=== PATIENT | female | born 1985 | race Caucasian/White ===

== ENCOUNTER 2024-12-31 10:57 | Emergency (ER) | payer BC, SELFPAY ==
--- NOTE | ~2024-12-31 | US_ITS ---
EXAMINATION: US venous doppler [facility] DATE: 12/31/2024 12:50 INDICATION: Left thigh pain. TECHNIQUE: Grayscale ultrasound images without and with compression and Doppler ultrasound images of the left lower extremity veins were obtained. COMPARISON: None. FINDINGS: The visualized portions of left common femoral vein, profunda (deep) femoral vein, femoral vein, popl iteal vein, peroneal veins, posterior tibial veins, and greater saphenous vein outflow are patent. Th ere are thrombosed varicose veins in the left thigh. IMPRESSION: 1. No deep venous thrombosis. 2. Thrombosed superficial veins in the left thigh. Reviewed, dictated and finalized at location A.
[2024-12-31 11:05] VITALS: BP 130/67; PULSE 91; RESP 16; TEMP 36.9; O2SAT 100
--- OUTSIDE RECORDS SUMMARY | 2024-12-31 11:21 | XMS_ITS | Clinical Summary ---
Author Organization [facility] Address [address] [address] Care Team Providers Care Lacquerer Name Role Phone Unavailable Primary Care Provider Unavailabl e Source Comments [facility],non-owned Affiliates and Associated Physician Practices is amultiple site organization consisting of ambulatory clinics and hospital sitesin [place], [place], [place] and [place]. This disclosure is being madepursuant to the Care Everywhere program and may not contain all information available regarding this patient. Last updated 18.[facility] Allergies Active Allergy Reactions Criticality Noted Date Comments Codeine Nausea and/or Vomiting,Vomiting 04/04 codeine Ketorolac Urticaria Medium 11/10/2024 Tramadol Urticaria Medium 11/10/2024 Vancomycin Urticaria Medium 11/10/2024 Medications * Be aware that medications may not be up to date on this document. Alwaysverify current medications with the patient. Medication Sig Dispensed Refills Start Date End Date Status valACYclovir (Valtrex) 1 GM tablet Take 1 (one) tablet by mouth 2 times daily as needed Active Idmuvknh-SaVsa-MX-DHA w/o A ( + DHA PO) Take 1 tablet by mouth once daily Active albuterol HFA (Proventil; Ventolin; Proair) 108 (90 Base) MCG/ACT inhaler INHALE 1 TO 2 PUFFS BY MOUTH EVERY 4 TO 6 HOURS NEEDED AND DIRECTED Active Active Problems Problem Noted Date Diagnosed Date Hyperthyroidism affecting 12/08/2024 Placenta accreta 12/08/2024 Previous delivery affecting , antepartum 12/08/2024 Advanced maternal age in multigravida 12/08/2024 Graves disease 11/10/2024 Supervision of high-risk of elderly mu ltigravida 11/10/2024 Placenta previa 10/30/2024 Estimated Date of Delivery Comme nts Yes 04/20/2025 Based on last me nstrual period of 07/14/2024 Encounters Date Type Department Care Team Description 12/09/2024 Telephone [facility] [address] [place] [address] Emperatriz Belle Appointment 12/09/2024 Telephone [facility] [address] [place] [address] Kris You Scheduling 12/08/2024 10:30 AM APPLICATION SECURITY DEVELOPER - 12/08/2024 11:59 PM APPLICATION SECURITY DEVELOPER Hospital Encounter [facility] [address] [place] [address] Doreen Castillo MD Chavan, Niraj R, MD Discharge Disposition: Home or Self Care 12/08/2024 10:30 AM APPLICATION SECURITY DEVELOPER Hospital Encounter [facility] [address] [place] [address] Doreen Castillo MD Discharge Disposition: Home or Self Care 12/08/2024 Travel 11/10/2024 9:38 AM APPLICATION SECURITY DEVELOPER - 11/10/2024 11:59 PM APPLICATION SECURITY DEVELOPER Hospital Encounter [facility] [address] [place] [address] Iain Tinoco DO Discharge Disposition: Home or Self Care 11/10/2024 9:36 AM APPLICATION SECURITY DEVELOPER - 11/10/2024 9:37 AM APPLICATION SECURITY DEVELOPER Hospital Encounter [facility] [address] [place] [address] Doreen Castillo MD Discharge Disposition: Home or Self Care from Last 3 Months Family History Medical History Relation Name Comments None Known Brother Asthma Father Thyroid Disease Father Thyroid Disease Mother Relation Name Status Comments Brother Father Mother Social History Tobacco Use Types Packs/Day Years Used Date Smoking Tobacco: Never Smokeless Tobacco: Never Tobacco Cessation:Counseling Given: Not Answered Alcohol Use Standard Drinks/Week Comments Not Currently 0 (1 standard drink = 0.6 oz pur e alcohol) AUDIT-C Answer Date Recorded Q1: How often do you have a drink containing alcohol? Never 11/03/2024 Q2: How many drinks containi ng alcohol do you have on a typical day when you are drinking? Patient does not drink Q3: How often do you have si x or more drinks on one occasion? Never 11/03/2024 Overall Financial Resource Strain (CARDIA) Answe r Date Recorded How hard is it for you to pa y for the very basics like food, housing, medical care, and heating? Not very hard 11/10/2024 [facility] - Occupational Stress Questionnaire Answer Date Recorded Do you feel stress - tense, restless, nervous, or anxious, or unable to sleep at night because your mind is troubled all the time - these days? Only a little 11/10/2024 Hunger Vital Sign Answer Date Recorded Within the past 12 months, y ou worried that your food would run out before you got the money to buy more. Never true 11/10/19 25 Within the past 12 months, t he food you bought just didn't last and you didn't have money to get more. Never true 11/10/2024 PRAPARE - Transportation Answer Date Re corded In the past 12 months, has l ack of transportation kept you from medical appointments or from getting medications? No 03/2025 In the past 12 months, has l ack of transportation kept you from meetings, work, or from getting things needed for daily living? No 11/10/2024 [place] Depression Scale Answer Date Recorded [place] Depression Scale Total 1 11/10/2024 The thought of harming myself has occurred to me . Never 11/10/2024 Housing Stability Vital Sign Answer Bentley e Recorded In the last 12 months, was t here a time when you were not able to pay the mortgage or rent on time? No 11/10/2024 In the past 12 months, how m any times have you moved where you were living? 0 11/10/2024 At any time in the past [address] [facility], were you homeless or living in a chcf (including now)? No 11/10/2024 Estimated Date of Delivery Comme nts Yes 04/20/2025 Based on last me nstrual period of 07/14/2024 Sex and Gender Information Value Date Recorded Sex Assigned at Female 10/20/2024 3:11 PM APPLICATION SECURITY DEVELOPER Gender Identity Female 10/20/2024 3:11 PM APPLICATION SECURITY DEVELOPER Sexual Orientation Straight 10/20/2024 3: 12 PM APPLICATION SECURITY DEVELOPER Last Filed Vital Signs Vital Sign Reading Time Taken Comments Blood Pressure 113/70 12/08/2024 11:52 AM APPLICATION SECURITY DEVELOPER Pulse 76 12/08/2024 11:52 AM APPLICATION SECURITY DEVELOPER Temperature - - Respiratory Rate - - Oxygen Saturation - - Inhaled Oxygen Concentration - - Weight 79.4 kg (175 lb) 12/08/2024 11:52 AM APPLICATION SECURITY DEVELOPER Height - - Body Mass Index - - Plan of Treatment Upcoming Encounters Date Type Department Care Team (Late st Contact Info) Description 01/03/2025 1:10 PM CDT Appointment [facility] [address] [place] [address] Doreen Castillo MD [address] [place] [address] 01/03/2025 2:15 PM CDT Appointment [facility] [address] [place] [address] Doreen Castillo MD [address] [place] [id number] Diony Underwood MD [address] [place], [place] [id number] Health Maintenance Due Date Last Done Comments PAP SMEAR 1987 HIV SCREENING 2002 HEPATITIS C SCREENING 07/11/2005 DTAP/TDAP/TD VACCINES (1 - Tdap) 2006 HEPATITIS B VACCINE (1 of 3 - 19+ 3-dose series) 2006 COVID-19 VACCINE (2023-2 5 season) 2024 INFLUENZA VACCINE (#1) 2024 OB-ONE HOUR GLUCOSE 01/12/2025 OB-RHOGAM INJECTION 01/26/2025 ZOSTER VACCINE (1 of 2) 2037 DEPRESSION SCREENING Completed 11/10/2024 HIB VACCINE Aged Out No longer eligi ble based on patient's age to complete this topic HPV VACCINE Aged Out No longer eligi ble based on patient's age to complete this topic MENINGOCOCCAL (Group B) VACC INE SHARED DECISION-MAKING Aged Out No longer eligibl e based on patient's age to complete this topic MENINGOCOCCAL GROUPS A/C/Y/W VACCINE Aged Out No longer eligible b ased on patient's age to complete this topic PNEUMOCOCCAL VACCINE Aged Out No long er eligible based on patient's age to complete this topic Respiratory Syncytial Virus (RSV) Vaccine Pt: or over 60 yrs (No Doses Required) Completed Procedures Procedure Name Priority Date/Time Associated Diagnosis Comments URINALYSIS - POCT (IP) BEAKER INTERFACE Routine 12/08/2024 11:55 AM APPLICATION SECURITY DEVELOPER SONOGRAM - COMPLETE Routine 12/08/2024 1 0:49 AM APPLICATION SECURITY DEVELOPER T4 FREE DIRECT REFLEXED Routine 11/10/19 25 12:50 PM APPLICATION SECURITY DEVELOPER Graves disease TSH REFLEX FREE T4 Routine 11/10/2024 12 :50 PM APPLICATION SECURITY DEVELOPER Graves disease HEMOGLOBINOPATHY FRACTIONATION CASCADE Routine 11/10/2024 12:50 PM APPLICATION SECURITY DEVELOPER Supervision of high-risk of elderly multigravida SONOGRAM - COMPLETE Routine 11/10/2024 1 0:14 AM APPLICATION SECURITY DEVELOPER from Last 3 Months Results * URINALYSIS - POCT (IP) BEAKER INTERFACE (12/08/2024 11:55 AM APPLICATION SECURITY DEVELOPER) Color UA POCT Yellow Straw, Yellow, Dark Yellow, Light Yellow 12/08/2024 11:57 AM APPLICATION SECURITY DEVELOPER [facility] Clarity UA POCT Clear Clear 11:57 AM APPLICATION SECURITY DEVELOPER [facility] Specific [place] UA POCT 1.015 1.005 - 1.030 12/08/2024 11:57 AM APPLICATION SECURITY DEVELOPER [facility] pH UA POCT 6.0 5.0 - 8.0 pH 12/08/2024 11:57 AM APPLICATION SECURITY DEVELOPER [facility] Protein UA POCT Negative Negative 11:57 AM APPLICATION SECURITY DEVELOPER [facility] Blood UA POCT Negative Negative 12/08/2024 11:57 AM APPLICATION SECURITY DEVELOPER [facility] Leukocyte UA POCT Negative Negative 12/08/2024 11:57 AM APPLICATION SECURITY DEVELOPER [facility] Nitrite UA POCT Negative Negative 11:57 AM APPLICATION SECURITY DEVELOPER [facility] Glucose UA POCT Negative Negative 11:57 AM APPLICATION SECURITY DEVELOPER [facility] Ketone UA POCT Negative Negative 12/08/2024 11:57 AM APPLICATION SECURITY DEVELOPER [facility] Bilirubin UA POCT Negative Negative 12/08/2024 11:57 AM APPLICATION SECURITY DEVELOPER [facility] Urobilinogen UA POCT 0.2 0.1 - 1.0 EU/dL 12/08/2024 11:57 AM [facility] Urine URINE / Unknown 12/08/2024 1 1:55 AM APPLICATION SECURITY DEVELOPER 12/08/2024 11:57 AM APPLICATION SECURITY DEVELOPER Arjun Mohamud MD LAB - POINT OF CARE ORDERABLES Performing Organization Address [facility]/State/[facility] Co de Phone Number [facility] [address] [place] [address] * SONOGRAM - COMPLETE (12/08/2024 10:49 AM APPLICATION SECURITY DEVELOPER) Only the most recent of2 resultswithin the time period is included. 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 Para 3 [id number] 1. live 2006. Gest. age 41 w + 0 d. Sex of child: male. Details: Vaginal delivery 2. live 2013. Gest. age 38 w + 0 d. Sex of child: female. Details: delivery 3. live 2022. Gest. age 39 w + 0 d. Sex of child: female. Details: delivery Lab Tests Test Date Result Genetic screening 09/29/2024 low risk male ([id number] plus) Maternal Assessment Physical Exam Height 165 cm, 5 ft 5 in. Initial weight 78 kg, 171 lb. Initial BMI 28.46 kg/m Method ====== Transabdominal and transvaginal ultrasound examination. View: Good view ========= Seaman . Number of fetuses: 1 Dating ====== Date Details Gest. age QUEENIE LMP 07/14/2024 21 w + 0 d 04/20/2025 Stated QUEENIE 21 w + 0 d 04/20/2025 Previous U/S 09/20/2024 GA, GA 10 w + 3 d 21 w + 5 d 04/15/2025 U/S 12/08/2024 based upon AC, BPD, Femur, HC 21 w + 6 d 04/14/2025 Assigned dating based on the LMP, selected on 12/08/2024 21 w + 0 d 04/20/2025 General Evaluation Cardiac activity present. FHR 138 bpm. Presentation: cephalic Placenta: Placental site: anterior, previa. Placenta accreta Umbilical cord: Cord vessels: 3 vessel cord. Insertion site: normal insertion Amniotic fluid: Amount of AF: normal. MVP 7.1 cm Biometry BPD 51.2 mm 21w 4d 70% Hadlock HC 194.2 mm 21w 5d 69% Hadlock Cerebellum tr 23.7 mm 97% [place] Nuchal fold 4.8 mm AC 188.3 mm 23w 4d 98% Hadlock Femur 33.3 mm 20w 3d 22% Hadlock Humerus 32.9 mm 21w 1d 48% Chika HC / AC 1.03 -/- 1% Hadlock Weight Calculation: EFW 477 g 93% Hadlock EFW (lb,oz) 1 lb 1 oz EFW by Hadlock (RSA-MC-LS-FL) Head / Face / Neck Biometry: International Trade Teacher 6.8 mm CM 5.9 mm 72% Nicolaides LGA Growth Overview Exam date GA BPD (mm) HC (mm) AC (mm) FL (mm) HL (mm) EFW (g) 11/10/2024 17w 0d 39.3 87% 145.5 78% 129.6 91% 21.7 26% 22.6 58% 201 80% 12/08/2024 21w 0d 51.2 70% 194.2 69% 188.3 98% 33.3 22% 32.9 48% 477 93% Anatomy The following structures appear normal: Head / Neck Cranium. Lateral ventricles. Choroid plexus. Midline falx. Cavum septi pellucidi. Cerebellum. Cisterna magna. Thalami. Nuchal fold. Face Lips. Profile. Nose. Nasal bone. Orbits. Heart / Thorax 4-chamber view. RVOT view. LVOT view. 3-vessel view. 5-kousuo-evcbojz view. Situs. Aortic arch view. Bicaval view. Ductal arch view. Great vessels. Right lung. Left lung. Diaphragm. Abdomen Cord insertion. Stomach. Kidneys. Bladder. Bowel. Spine Cervical spine. Thoracic spine. Lumbar spine. Sacral spine. Extremities / Skeleton Arms. Hands. Legs. Feet. The following structures were visualized: Abdomen Genitals. sex: male. Maternal Structures Cervix reassuring Approach - Transvaginal: Cervical length 4.54 cm Right Ovary Normal Left Ovary Normal Impression ========= Single live intrauterine at 21w 0d size at the upper limits of expected for gestational age by established QUEENIE Normal amniotic fluid volume Transvaginal cervical length reassuring No sonographic signs of abnormality Left lateral synechia Complete placenta previa with features concerning for placenta accreta Comment ======== Measurements today reflect appropriate interval growth. A uterine synechia is noted on the left lateral superior portion of the uterus. The previously seen PHOTOGRAPHY TEACHER is not visualized today. The uterine placental interface was examined transabdominally and transvaginally. A complete anterior placenta previa is noted with placenta extending on to the posterior uterine wall. With a partially full bladder, the myometrium, uterine-bladder interface, and placenta were scanned with virgen-scale and color Doppler. Loss of integrity of the retroplacental clear space/myometrial thickness is noted in the area under the bladder. On the right, multiple irregularly-shaped lacunae are noted. Turbulent blood flow within the lacunae, increased vascularity, and a bridging vessel into the bladder wall are seen with color Doppler interrogation. Follow-up ======== Repeat ultrasound in 4-6 weeks to assess growth and reassess the placenta Coding ====== Procedures 80029: US Preg Uterus Detailed [id number]: US Preg Uterus Transvaginal rishidhan Seeds PACS Anatomical Region Laterality Modality Other 12/08/2024 10:4 9 AM APPLICATION SECURITY DEVELOPER Diony Underwood MD [facility] ORDERABLES * HEMOGLOBINOPATHY FRACTIONATION CASCADE (11/10/2024 12:50 PM APPLICATION SECURITY DEVELOPER) Hemoglobin F 0.0 0.0 - 2.0 % 11/14/2024 4:08 PM APPLICATION SECURITY DEVELOPER [facility] Hemoglobin A 97.5 96.4 - 98.8 % 11/14/2024 4:08 PM APPLICATION SECURITY DEVELOPER [facility] Hemoglobin A2 2.5 1.8 - 3.2 % 11/14/2024 4:08 PM APPLICATION SECURITY DEVELOPER [facility] Hemoglobin S 0.0 0.0 % 11/14/2024 4:08 PM APPLICATION SECURITY DEVELOPER [facility] Interpretation Comment 11/14/2024 4:08 PM APPLICATION SECURITY DEVELOPER [facility] Comment: Normal hemoglobin present; no hemoglobin variant or beta thalassemia identified. Note: Alpha thalassemia may not be detected by the Hgb Fractionation [place] panel. If alpha thalassemia is suspected, [facility] offers Alpha-Thalassemia DNA Analysis (#[id number]). Blood BLOOD SPECIMEN / Unknown Venipuncture / Unknown 11/10/2024 12:50 PM APPLICATION SECURITY DEVELOPER 11/10/2024 12:58 PM APPLICATION SECURITY DEVELOPER Narrative [facility] ([facility]) - 11/14/2024 4:08 PM APPLICATION SECURITY DEVELOPER Performed at: 01 - [facility] [address] [place], [place] [id number] Associate Professor Of Archaeology: Aníbal Harley PhD, Phone: [phone] Iain Tinoco DO LAB - CHEMISTRY JANNETH GALEANA [facility] ([facility]) [address] [place] [address] * T4 FREE DIRECT REFLEXED (11/10/2024 12:50 PM APPLICATION SECURITY DEVELOPER) T4 Free 1.50 0.70 - 1.50 ng/dL 11/10/2024 3:50 PM APPLICATION SECURITY DEVELOPER [facility] Blood BLOOD SPECIMEN / Unknown Venipuncture / Unknown 11/10/2024 12:50 PM APPLICATION SECURITY DEVELOPER 11/10/2024 12:58 PM APPLICATION SECURITY DEVELOPER Iain Tinoco DO LAB - CHEMISTRY JANNETH GALEANA Performing Organization Address City/[facility]/ZIP Co de Phone Number [facility] [address] [place] [phone] * (ABNORMAL) TSH REFLEX FREE T4 (11/10/2024 12:50 PM APPLICATION SECURITY DEVELOPER) TSH <0.010(L) 0.350 - 4.940 uIU/mL 11/10/2024 2:11 PM APPLICATION SECURITY DEVELOPER [facility] Blood BLOOD SPECIMEN / Unknown Venipuncture / Unknown 11/10/2024 12:50 PM APPLICATION SECURITY DEVELOPER 11/10/2024 12:58 PM APPLICATION SECURITY DEVELOPER Iain Tinoco DO LAB - CHEMISTRY JANNETH GALEANA [facility] [address] [place] [address] from Last 3 Months Naomie Whitney Personal/Family Self 1985
--- OUTSIDE RECORDS SUMMARY | 2024-12-31 11:22 | XMS_ITS | Data Portability ---
Author Organization [facility], [address] [facility] ([place]) Address [address] 4[address] [place] [address] Care Team Providers Care Drapery Rod Assembler Name Role Phone LUPE DAN Veterinary Surgery Technician GRACIELA ABREU Primary Care Provider [phone] Assessment Encounter Date Assessment Date Assessment LastModified by Organization Details LastModified Time 11/16/2024 11/16/2024 REASONS FOR FOLLOW-UP: 1. Autoimmune thyroiditis with history of thyrotoxicosis. 2. Left thyroid nodule. 3. Cassi thyroiditis. 4. at 18 weeks' gestation as of November 17, 2024. HPI: Ms. Whitney is a delightful female returning to endocrine clinic. She learned of thyrotoxicosis due to Graves' disease in late 2018. She was begun on methimazole in September 2019. Methimazole was increased to 7.5 mg daily from a dose of 5 mg daily in early November 2020. She noted difficulty tolerating 7.5 mg daily as this resulted in dizziness and tremulousness. She took that dosage for approximately three weeks. Ms. Whitney was able to taper and then discontinue methimazole in April 2022. She feels that her thyrotoxicosis has resolved. Denies tremors or palpitations. She feels well physically. She has been exercising regularly. Ms. Whitney has a left thyroid nodule. Dr. Case previously was ordering her thyroid ultrasounds to follow the status of this nodule. April 09, 2020, diffuse thyroiditis was noted on ultrasound. There was a stable, benign appearing, 9 mm nodule in the left thyroid lobe as compared to January 2019 per the dictated radiology report. The patient denies pressure symptoms of the anterior neck. She denies change in voice. Repeat thyroid ultrasound was performed May 22, 2021. This revealed heterogeneity and increased vascularity, revealing interval improvement as compared to ultrasound April 2020. No new or enlarging thyroid nodules or masses were noted. No cervical lymphadenopathy. The small cyst in the superior aspect of the left lobe was 8 mm in size as compared to 9 mm previously. She had thyroid ultrasound repeated December 11, 2022. This revealed diffuse thyroiditis. There was a stable 8 mm left thyroid nodule. No cervical lymphadenopathy per the dictated report. No pressure symptoms over the anterior neck. She delivered her daughter September 18, 2023 without any complications. At that time, she had been taking levothyroxine 50 mcg each day on an empty stomach. November 2023 TSH was suppressed with a free T4 od 1.87. At that time, she discontinued levothyroxine. February 17, 2024, TSH increased to 11.322 with a free T4 of 0.75. Ms. Whitney continues to have labile thyroid function studies. In February 2024, she had TSH of 11.322. At that time, she was begun on levothyroxine 50 micrograms daily. August 25, 2024, TSH was 0.469. At that time, she was contacted and informed our office she had not been taking levothyroxine 50 micrograms daily. She notified us of a positive test. She was asked to begin levothyroxine 25 micrograms daily. On September 26, 2024, we were contacted by the patient's OB provider and notified that her TSH was low with slightly elevated free T4 and free T3 levels. At that time, Ms. Whitney discontinued levothyroxine. Ms. Whitney was almost 18 weeks' as of November 16, 2024. She noted going well. She reported her baby to be measuring approximately 10 days ahead of gestational dated on ultrasound in early November 2024. The patient estimated her body weight was 4 pounds more as compared to prior to . PHYSICAL EXAMINATION: CONST: No acute distress. Appears well. Vitals as documented. Appears younger than stated age. EYES: PERRL. EOMI. No scleral icterus or injection. No exophthalmos or lid lag. Convergence normal. ENT: External inspection of the ears and nose are without scars, lesions, or masses. Oropharynx without lesions. NECK: No thyromegaly, thyroid bruits, or carotid bruits. No cervical or supraclavicular lymphadenopathy. Thyroid tissue palpable. RESP: Lung kim clear to auscultation bilaterally with unlabored respiratory effort. CV: Normal S1, S2. No murmurs, rubs, or gallops appreciated. Regular rate and rhythm. GI: Abdomen: soft, nontender. Normoactive bowel sounds. Unable to assess for organomegaly given gravid body habitus. MSK: No lower extremity edema. No clubbing or cyanosis. Normocephalic. SKIN: No rashes or lesions. PSYCH: Alert and oriented X 3. Appropriate mood and affect. NEURO: No focal neurologic deficits. Gait without abnormalities. No hand tremors. Reviewed recent diagnostic tests, lab work, and imaging. These were reviewed with the patient. ASSESSMENT: 1. Thyrotoxicosis due to Graves' disease: The patient was begun on methimazole in September 2019. Methimazole was discontinued in April 2022. 2. Left thyroid nodule. 3. Vitamin D deficiency: This is managed through the office of Dr. Jimenez. 4. Normal BMI prior to . 5. Autoimmune thyroiditis/Hashim lorna thyroiditis in the setting of : She was begun on levothyroxine 50 mcg daily February 05, 2023. The patient discontinued levothyroxine in November 2023 when she had a suppressed TSH and elevated free T4. 6. Delivery of her daughter September 18, 2023. 7. Ongoing autoimmune thyroiditis. 8. at approximately 18 weeks' gestation as of November 16, 2024. RECOMMENDATIONS: 1. Potential benefits, risks, and adverse effects of the patient s endocrine medications were reviewed at the time of the appointment. We also reviewed appropriate timing of the patient s endocrine medications with respect to meals and other medications. The patient verbalized/indicat ed understanding of all education presented. 2. Instructed on plan of care. Discussed signs and symptoms to report. Patient/caregiver aware and agreeable with plan. Return to clinic if signs/symptoms do not improve, worsen, or if new symptoms develop. The importance of achieving/maintain ing a normal BMI was discussed. 3. Diagnostic studies as outlined in this note. Further recommendations will be based on these results as well as the patient s clinical course. 4. Return to endocrinology clinic in 3 months. 5. I discussed with Ms. Devonte that her biochemical thyroid profile has not been entirely clear. She has a history of autoimmune thyroiditis in the form of Graves thyrotoxicosis. However, her labs subsequently suggested she may be heading in the direction of primary hypothyroidism. 6. She will have thyroid function studies performed. We discussed potential benefits as well as potential adverse effects of both thyroid replacement therapy as well as thionamide therapy. 7. We again reviewed symptoms of thyroid dysfunction in detail. I asked her to report any such symptoms to our office. 8. We will discuss timing for any necessary repeat thyroid ultrasound when she returns to endocrine clinic. dpk Addendum: TSH continues to be suppressed with slightly elevated free T4 and free T3 values. I asked the patient to notify our office if she experiences any symptoms of thyrotoxicosis. We do not want to suppress her thyroid function in the setting of her . She will have TSH, free T4, free T3 performed in 1 month. [email or web address] Not available 11/17/2024 21:02:20 Plan of Treatment Reminders Order Date Submit Date Provider Last Modified By Organization Details Last Modified Time Details Appointments OB Check 15.EST 2024 11:45A M Dr. Lupe Dan Not available Not available Not available Establish ed Patient 15.EST 2024 01:30P M Dr. Anthony Fishman Not available Not available Not available Lab urinalysi s, dipstick 2024 025 [id number] 900 [facility] [address] [place] [address], [facility] Floor, [place], [address], 11/20/2024 18:07:07 CMP, serum or plasma 2024 025 [facility], [address] [place] [address], [id number], 12/23/2024 07:53:44 T4, free, serum 2024 025 [facility], [address] [place] [address], [id number], 12/23/2024 07:53:54 T3, free, serum or plasma 2024 025 [facility] - [facility], [address] [place] [address], [id number], 12/23/2024 07:54:05 tsi (thyroid- stimulati ng immunoglo bulin), serum 2024 025 [facility] Only - [facility], [address] [place] [address], [id number], 12/23/2024 07:54:15 thyrotrop in receptor Ab, serum 2024 025 [facility] Only - [facility], [address] [place] [address], [id number], 12/23/2024 07:54:27 thyroid peroxidas e (tpo) Ab, serum 2024 025 [facility] Only - [facility], [address] [place] [address], [id number], 12/23/2024 07:54:37 TSH, serum or plasma 2024 025 [facility] - [facility], [address] [place] [address], [id number], 12/23/2024 07:54:47 Referral None recorded. Procedures None recorded. Surgeries None recorded. Imaging None recorded. Medication Orders None recorded. Patient TargetsNo targets recorded. Patient InstructionsNo instructions recorded. Reason for Referral None Reported. Results Created Date Observation Date Name Description Value Unit Range Abnormal Flag Note LastModifiedBy Organization Detail LastModifiedTime 09/21/20 24 09/21/2024 urina lysis , compl ete urinalysis, complete LOW LEVEL S OF HEMOG LOBIN IN ABSEN CE OF HEMAT URIA MAY NOT BE [facility] SIGNI FRANCISCO TChago Not Available [facility] - [facility] [address] [place] [address], [id number], 09/21/2024 11:11:04 09/21/20 24 09/21/2024 urina lysis , compl ete color YELLOW Not Available [facility] - [facility] [address] [place] [address], [id number], 09/21/2024 11:11:04 09/21/20 24 09/21/2024 urina lysis , compl ete clarity CLEAR Not Available [facility] - [facility] [address] [place] [address], [id number], 09/21/2024 11:11:04 09/21/20 24 09/21/2024 urina lysis , compl ete pH 6.0 5.0-7. 5 Not Available [facility] [address] [place] [address], [id number], 09/21/2024 11:11:04 09/21/20 24 09/21/2024 urina lysis , compl ete specific gravity 1.009 1.000- 1.030 Not Available [facility] [address] [place] [address], [id number], 09/21/2024 11:11:04 09/21/20 24 09/21/2024 urina lysis , compl ete blood NEGATI VE negati ve Not Available [facility] [address] [place] [address], [id number], 09/21/2024 11:11:04 09/21/20 24 09/21/2024 urina lysis , compl ete bilirubin NEGATI VE negati ve Not Available [facility] [address] [place] [address], [id number], 09/21/2024 11:11:04 09/21/20 24 09/21/2024 urina lysis , compl ete urobilinogen 0.2 0.2-1. 0 Not Available [facility] [address] [place] [address], [id number], 09/21/2024 11:11:04 09/21/20 24 09/21/2024 urina lysis , compl ete ketone NEGATI VE negati ve Not Available [facility] [address] [place] [address], [id number], 09/21/2024 11:11:04 09/21/20 24 09/21/2024 urina lysis , compl ete glucose NEGATI VE negati ve Not Available [facility] [address] [place] [address], [id number], 09/21/2024 11:11:04 09/21/20 24 09/21/2024 urina lysis , compl ete protein NEGATI VE negati ve Not Available [facility] [address] [place] [address], [id number], 09/21/2024 11:11:04 09/21/20 24 09/21/2024 urina lysis , compl ete nitrite NEGATI VE negati ve Not Available [facility] [address] [place] [address], [id number], 09/21/2024 11:11:04 09/21/20 24 09/21/2024 urina lysis , compl ete leukocytes TRACE negati ve abnormal Not Available [facility] [address] [place] [address], [id number], 09/21/2024 11:11:04 09/21/20 24 09/21/2024 urina lysis , compl ete RBC 0-2 0-2/hp f Not Available [facility] [address] [place] [address], [id number], 09/21/2024 11:11:04 09/21/20 24 09/21/2024 urina lysis , compl ete WBC 0-5 0-5/hp f Not Available [facility] [address] [place] [address], [id number], 09/21/2024 11:11:04 09/21/20 24 09/21/2024 urina lysis , compl ete squamous epithelial 0-2 0-10/h pf Not Available [facility] [address] [place] [address], [id number], 09/21/2024 11:11:04 09/21/20 24 09/21/2024 urina lysis , compl ete bacteria NONE SEEN none Not Available [facility] [address] [place] [address], [id number], 09/21/2024 11:11:04 09/21/20 24 09/21/2024 urina lysis , compl ete hyaline cast 0-2 0-2/lp f Not Available [facility] [address] [place] [address], [id number], 09/21/2024 11:11:04 09/21/20 24 09/21/2024 CT + NG DNA, PCR, unspe cifie d speci men GC/CT/TV DNA probe Not Available [facility] [address] [place] [address], [id number], 09/21/2024 14:09:08 09/21/20 24 09/21/2024 CT + NG DNA, PCR, unspe cifie d speci men GC-DNA probe NEGATI VE negati ve Not Available [facility] [address] [place] [address], [id number], 09/21/2024 14:09:08 09/21/20 24 09/21/2024 CT + NG DNA, PCR, unspe cifie d speci men chlamydia-DN A probe NEGATI VE negati ve This is a PCR assay that detec ts DNA from Chlam ydia trach omati s, Neiss eria gonor rhoea e, and Trich omona s vagin nessa. A posit cleo resul t does not neces saril y indic ate the prese nce of viabl e organ isms and there fore can not be used to asses s thera peuti c succe ss. This assay is only appro alphonse for femal e vagin al and male and femal e urine speci mens. This assay shoul d not be used for evalu ation of suspe cted sexua l abuse or for medic o-leg al indic ation s. Not Available [facility] [address] [place] [address], [id number], 09/21/2024 14:09:08 09/21/20 24 09/21/2024 CT + NG DNA, PCR, unspe cifie d speci men trichomonas NEGATI VE negati ve Not Available [facility] [address] [place] [address], [id number], 09/21/2024 14:09:08 09/21/20 24 09/23/2024 cultu re + sensi tivit y, urine urine culture and sens. DEVONTE L URINE No growt h after overn ight incub ation After two night s incub ation <10,0 00 CFU/m L Bibiana l uroge nital mary isola thony. Not Available [facility] [address] [place] [address], [id number], 09/23/2024 09:40:59 09/21/20 24 09/22/2024 cultu re + sensi tivit y, urine urine culture and sens. PREL IM URINE No growt h after overn ight incub ation Not Available [facility] [address] [place] [address], [id number], 09/22/2024 17:02:26 09/26/20 24 09/26/2024 T4, free, serum free T4 2.04 NG/dL 0.58-1 .64 high Speci mens that conta in high level s of bioti n may cause false ly high Free T4 resul ts. Not Available [facility] [address] [place] [address], [id number], 09/26/2024 19:30:00 09/26/20 24 09/26/2024 TSH, ultra -sens itive , serum TSH3 0.013 uIU/m L .340-5 .600 low Not Available [facility] [address] [place] [address], [id number], 09/26/2024 19:31:42 09/26/20 24 09/26/2024 T3, free, serum or plasm a free T3 5.2 pg/mL 2.6-4. 7 high Not Available [facility] [address] [place] [address], [id number], 09/26/2024 19:31:43 09/26/20 24 09/26/2024 gluco se, QN, serum or plasm a glucose- Not Available [facility] [address] [place] [address], [id number], 09/26/2024 20:04:55 09/26/20 24 09/26/2024 gluco se, QN, serum or plasm a glucose 97 mg/dL 70-100 Not Available [facility] [address] [place] [address], [id number], 09/26/2024 20:04:55 09/26/20 24 09/26/2024 hepat itis C Ab, serum hepatitis C Ab NONREA CTIVE nonrea ctive Not Available [facility] [address] [place] [address], [id number], 09/26/2024 20:04:56 09/26/20 24 09/27/2024 Hepat itis B virus core Ab, qual immun oassa y, serum or plasm a hepatitis B core Ab NEGATI VE negati ve Not Available [facility] [address] [place] [address], [id number], 09/27/2024 05:37:15 09/26/20 24 09/26/2024 obste tric scree n + HIV, serum or blood rubella virus IgG Ab 62.0 IU/mL <5 IU/mL = Absen ce of immun ity 5 - <10 IU/mL = Equiv ocal >10 IU/mL = Presu med immun e Not Available [facility] [address] [place] [address], [id number], 09/27/2024 06:40:02 09/26/20 24 09/26/2024 obste tric scree n + HIV, serum or blood hepatitis B surface Ag NONREA CTIVE nonrea ctive Not Available [facility] [address] [place] [address], [id number], 09/27/2024 06:40:02 09/26/20 24 09/26/2024 obste tric scree n + HIV, serum or blood syphilis-T. pallidum Ab NONREA CTIVE non reacti ve Not Available [facility] [address] [place] [address], [id number], 09/27/2024 06:40:02 09/26/20 24 09/26/2024 obste tric scree n + HIV, serum or blood WBC 5.9 K/uL 3.8-11 .2 Not Available [facility] [address] [place] [address], [id number], 09/27/2024 06:40:02 09/26/20 24 09/26/2024 obste tric scree n + HIV, serum or blood RBC 4.29 M/uL 3.92-5 .10 Not Available [facility] [address] [place] [address], [id number], 09/27/2024 06:40:02 09/26/20 24 09/26/2024 obste tric scree n + HIV, serum or blood HGB 13.5 g/dL 11.8-1 5.3 Not Available [facility] [address] [place] [address], [id number], 09/27/2024 06:40:02 09/26/20 24 09/26/2024 obste tric scree n + HIV, serum or blood HCT 38.3 % 36.5-4 4.8 Not Available [facility] [address] [place] [address], [id number], 09/27/2024 06:40:02 09/26/20 24 09/26/2024 obste tric scree n + HIV, serum or blood MCV 89.3 fL 80.0-9 9.0 Not Available [facility] [address] [place] [address], [id number], 09/27/2024 06:40:02 09/26/20 24 09/26/2024 obste tric scree n + HIV, serum or blood MCH 31.5 pg 25.5-3 3.6 Not Available [facility] [address] [place] [address], [id number], 09/27/2024 06:40:02 09/26/20 24 09/26/2024 obste tric scree n + HIV, serum or blood MCHC 35.2 g/dL 32.0-3 6.0 Not Available [facility] [address] [place] [address], [id number], 09/27/2024 06:40:02 09/26/20 24 09/26/2024 obste tric scree n + HIV, serum or blood RDW-SD 39.1 fL 35.1 - 46.3 Not Available [facility] [address] [place] [address], [id number], 09/27/2024 06:40:02 09/26/20 24 09/26/2024 obste tric scree n + HIV, serum or blood plt 200 K/uL 130-40 0 Not Available [facility] [address] [place] [address], [id number], 09/27/2024 06:40:02 09/26/20 24 09/26/2024 obste tric scree n + HIV, serum or blood MPV 10.7 fL 9.3-12 .8 Not Available [facility] [address] [place] [address], [id number], 09/27/2024 06:40:02 09/26/20 24 09/26/2024 obste tric scree n + HIV, serum or blood HIV Ag/Ab 1-2 combo NONREA CTIVE nonrea ctive Not Available [facility] [address] [place] [address], [id number], 09/27/2024 06:40:02 09/26/20 24 09/27/2024 obste tric scree n + HIV, serum or blood OB panel plus HIV 1-2 cmb Not Available [facility] [address] [place] [address], [id number], 09/27/2024 06:40:02 09/26/20 24 09/27/2024 obste tric scree n + HIV, serum or blood ABO group B Not Available [facility] [address] [place] [address], [id number], 09/27/2024 06:40:02 09/26/20 24 09/27/2024 obste jaymie scree n + HIV, serum or blood Rh factor POSITI VE Pleas e note: Prior recor ds for this patie nt's ABO / Rh type are not avail able for addit ional verif icati on. Not Available [facility] [address] [place] [address], [id number], 09/27/2024 06:40:02 09/26/20 24 09/27/2024 obste jaymie scree n + HIV, serum or blood Ab screen NEGATI VE negati ve Not Available [facility] [address] [place] [address], [id number], 09/27/2024 06:40:02 09/26/20 24 09/27/2024 hepat itis B surfa ce Ab, quant itati ve, [place] [address]. 0 mIU/m L immuni ty>10 Resul ts confi rmed on dilut ion. Statu s of Immun ity Anti- HBs Level ----- ----- ----- --- ----- ----- ---- Incon siste nt with Immun ity 0.0 - 10.0 Consi stent with Immun ity >10.0 Not Available [facility] [address] [place] [address], [id number], 09/27/2024 06:40:05 09/26/20 24 09/27/2024 varic niyah zoste r virus IgG Ab, QN, IA, serum varicella zoster IgG REACTI VE Ple ase note refer ence inter shirlene mosqueda e A React cleo resul t is consi dered evide nce of immun ity to VZV. React cleo indic ates that VZV IgG was detec thony consi stent with previ ous infec tion and/o r vacci natio n. A Non React cleo resul t indic ates that VZV IgG was not detec thony sugge sting that immun ity has not been acqui red. Not Available [facility] [address] [place] [address], [id number], 09/27/2024 07:38:17 09/26/20 24 09/26/2024 obste tric scree n + HIV, serum or blood OB panel plus HIV 1-2 cmb Not Available [facility] [address] [place] [address], [id number], 09/26/2024 20:04:57 09/26/20 24 09/26/2024 obste tric scree n + HIV, serum or blood ABO group PENDIN G Not Available [facility] [address] [place] [address], [id number], 09/26/2024 20:04:57 09/26/20 24 09/26/2024 obste tric scree n + HIV, serum or blood Rh factor PENDIN G Not Available [facility] [address] [place] [address], [id number], 09/26/2024 20:04:57 09/26/20 24 09/26/2024 obste tric scree n + HIV, serum or blood Ab screen PENDIN G Not Available [facility] [address] [place] [address], [id number], 09/26/2024 20:04:57 09/26/20 24 09/26/2024 obste tric scree n + HIV, serum or blood rubella virus IgG Ab 62.0 IU/mL <5 IU/mL = Absen ce of immun ity 5 - <10 IU/mL = Equiv ocal >10 IU/mL = Presu med immun e Not Available [facility] [address] [place] [address], [id number], 09/26/2024 20:04:57 09/26/20 24 09/26/2024 obste tric scree n + HIV, serum or blood hepatitis B surface Ag Nonrea ctive nonrea ctive Not Available [facility] [address] [place] [address], [id number], 09/26/2024 20:04:57 09/26/20 24 09/26/2024 obste tric scree n + HIV, serum or blood syphilis-T. pallidum Ab Nonrea ctive non reacti ve Not Available [facility] [address] [place] [address], [id number], 09/26/2024 20:04:57 09/26/20 24 09/26/2024 obste tric scree n + HIV, serum or blood WBC 5.9 K/uL 3.8-11 .2 Not Available [facility] [address] [place] [address], [id number], 09/26/2024 20:04:57 09/26/20 24 09/26/2024 obste tric scree n + HIV, serum or blood RBC 4.29 M/uL 3.92-5 .10 Not Available [facility] [address] [place] [address], [id number], 09/26/2024 20:04:57 09/26/20 24 09/26/2024 obste tric scree n + HIV, serum or blood HGB 13.5 g/dL 11.8-1 5.3 Not Available [facility] [address] [place] [address], [id number], 09/26/2024 20:04:57 09/26/20 24 09/26/2024 obste tric scree n + HIV, serum or blood HCT 38.3 % 36.5-4 4.8 Not Available [facility] [address] [place] [address], [id number], 09/26/2024 20:04:57 09/26/20 24 09/26/2024 obste tric scree n + HIV, serum or blood MCV 89.3 fL 80.0-9 9.0 Not Available [facility] [address] [place] [address], [id number], 09/26/2024 20:04:57 09/26/20 24 09/26/2024 obste tric scree n + HIV, serum or blood MCH 31.5 pg 25.5-3 3.6 Not Available [facility] [address] [place] [address], [id number], 09/26/2024 20:04:57 09/26/20 24 09/26/2024 obste tric scree n + HIV, serum or blood MCHC 35.2 g/dL 32.0-3 6.0 Not Available [facility] [address] [place] [address], [id number], 09/26/2024 20:04:57 09/26/20 24 09/26/2024 obste tric scree n + HIV, serum or blood RDW-SD 39.1 fL 35.1 - 46.3 Not Available [facility] [address] [place] [address], [id number], 09/26/2024 20:04:57 09/26/20 24 09/26/2024 obste tric scree n + HIV, serum or blood plt 200 K/uL 130-40 0 Not Available [facility] [address] [place] [address], [id number], 09/26/2024 20:04:57 09/26/20 24 09/26/2024 obste tric scree n + HIV, serum or blood MPV 10.7 fL 9.3-12 .8 Not Available [facility] [address] [place] [address], [id number], 09/26/2024 20:04:57 09/26/20 24 09/26/2024 obste tric scree n + HIV, serum or blood HIV Ag/Ab 1-2 combo Nonrea ctive nonrea ctive Not Available [facility] [address] [place] [address], [id number], 09/26/2024 20:04:57 09/26/20 24 09/26/2024 obste tric scree n + HIV, serum or blood OB panel plus HIV 1-2 cmb Not Available [facility] [address] [place] [address], [id number], 09/26/2024 19:13:30 09/26/20 24 09/26/2024 obste tric scree n + HIV, serum or blood ABO group PENDIN G Not Available [facility] [address] [place] [address], [id number], 09/26/2024 19:13:30 09/26/20 24 09/26/2024 obste tric scree n + HIV, serum or blood Rh factor PENDIN G Not Available [facility] [address] [place] [address], [id number], 09/26/2024 19:13:30 09/26/20 24 09/26/2024 obste tric scree n + HIV, serum or blood Ab screen PENDIN G Not Available [facility] [address] [place] [address], [id number], 09/26/2024 19:13:30 09/26/20 24 09/26/2024 obste tric scree n + HIV, serum or blood rubella virus IgG Ab PENDIN G Not Available [facility] [address] [place] [address], [id number], 09/26/2024 19:13:30 09/26/20 24 09/26/2024 obste tric scree n + HIV, serum or blood hepatitis B surface Ag PENDIN G Not Available [facility] [address] [place] [address], [id number], 09/26/2024 19:13:30 09/26/20 24 09/26/2024 obste tric scree n + HIV, serum or blood syphilis-T. pallidum Ab PENDIN G Not Available [facility] [address] [place] [address], [id number], 09/26/2024 19:13:30 09/26/20 24 09/26/2024 obste tric scree n + HIV, serum or blood WBC 5.9 K/uL 3.8-11 .2 Not Available [facility] [address] [place] [address], [id number], 09/26/2024 19:13:30 09/26/20 24 09/26/2024 obste tric scree n + HIV, serum or blood RBC 4.29 M/uL 3.92-5 .10 Not Available [facility] [address] [place] [address], [id number], 09/26/2024 19:13:30 09/26/20 24 09/26/2024 obste tric scree n + HIV, serum or blood HGB 13.5 g/dL 11.8-1 5.3 Not Available [facility] [address] [place] [address], 96872, 09/26/2024 19:13:30 09/26/20 24 09/26/2024 obste tric scree n + HIV, serum or blood HCT 38.3 % 36.5-4 4.8 Not Available [facility] [address] [place] [address], [id number], 09/26/2024 19:13:30 09/26/20 24 09/26/2024 obste tric scree n + HIV, serum or blood MCV 89.3 fL 80.0-9 9.0 Not Available [facility] [address] [place] [address], 56700, 09/26/2024 19:13:30 09/26/20 24 09/26/2024 obste tric scree n + HIV, serum or blood MCH 31.5 pg 25.5-3 3.6 Not Available [facility] [address] [place] [address], 62753, 09/26/2024 19:13:30 09/26/20 24 09/26/2024 obste tric scree n + HIV, serum or blood MCHC 35.2 g/dL 32.0-3 6.0 Not Available [facility] [address] [place] [address], [id number], 09/26/2024 19:13:30 09/26/20 24 09/26/2024 obste tric scree n + HIV, serum or blood RDW-SD 39.1 fL 35.1 - 46.3 Not Available [facility] [address] [place] [address], 52413, 09/26/2024 19:13:30 09/26/20 24 09/26/2024 obste tric scree n + HIV, serum or blood plt 200 K/uL 130-40 0 Not Available [facility] [address] [place] [address], 11826, 09/26/2024 19:13:30 09/26/20 24 09/26/2024 obste tric scree n + HIV, serum or blood MPV 10.7 fL 9.3-12 .8 Not Available [facility] [address] [place] [address], [id number], 09/26/2024 19:13:30 09/26/20 24 09/26/2024 obste tric scree n + HIV, serum or blood HIV Ag/Ab 1-2 combo PENDIN G Not Available [facility] [address] [place] [address], 50731, 09/26/2024 19:13:30 11/16/1911/17/2024 TSH, ultra -sens itive , serum TSH3 0.009 uIU/m L .340-5 .600 low Not Available [facility] [address] [place] [address], 23606, 11/17/2024 13:18:46 11/16/19 25 11/17/2024 T4, free, serum free T4 1.70 NG/dL 0.58-1 .64 high Speci mens that conta in high level s of bioti n may cause false ly high Free T4 resul ts. Not Available [facility] [address] [place] [address], 39932, 11/17/2024 13:18:48 11/16/19 25 11/17/2024 T3, free, serum or plasm a free T3 5.0 pg/mL 2.6-4. 7 high Not Available [facility] [address] [place] [address], 13870, 11/17/2024 13:18:49 11/16/1911/17/2024 CMP, serum or plasm a comp. met. panel Not Available [facility] [address] [place] [address], 10223, 11/17/2024 13:22:47 11/16/19 25 11/17/2024 CMP, serum or plasm a sodium 136 mmol/ L 136-14 6 Not Available [facility] [address] [place] [address], 33973, 11/17/2024 13:22:47 11/16/19 25 11/17/2024 CMP, serum or plasm a potassium 3.8 mmol/ L 3.5-5. 1 Not Available [facility] [address] [place] [address], 75702, 11/17/2024 13:22:47 11/16/19 25 11/17/2024 CMP, serum or plasm a chloride 104 mmol/ L 98-110 Not Available [facility] [address] [place] [address], 85583, 11/17/2024 13:22:47 11/16/19 25 11/17/2024 CMP, serum or plasm a CO2 24 mEq/L 20-32 Not Available [facility] [address] [place] [address], 24183, 11/17/2024 13:22:47 11/16/19 25 11/17/2024 CMP, serum or plasm a anion gap 12 mmol/ L 10-22 Not Available [facility] [address] [place] [address], 57244, 11/17/2024 13:22:47 11/16/19 25 11/17/2024 CMP, serum or plasm a glucose 66 mg/dL 70-100 low Not Available [facility] [address] [place] [address], 67111, 11/17/2024 13:22:47 11/16/19 25 11/17/2024 CMP, serum or plasm a calcium 9.3 mg/dL 8.4-10 .4 Not Available [facility] [address] [place] [address], 55312, 11/17/2024 13:22:47 11/16/1911/17/2024 CMP, serum or plasm a total protein 6.4 g/dL 6.4-8. 3 Not Available [facility] [address] [place] [address], 01822, 11/17/2024 13:22:47 11/16/19 25 11/17/2024 CMP, serum or plasm a albumin 4.0 g/dL 3.5-5. 3 Not Available [facility] [address] [place] [address], 27777, 11/17/2024 13:22:47 11/16/19 25 11/17/2024 CMP, serum or plasm a ALP 41 U/L 44 - 127 low Not Available [facility] [address] [place] [address], 80544, 11/17/2024 13:22:47 11/16/19 25 11/17/2024 CMP, serum or plasm a AST (SGOT) 13 U/L 10-40 Not Available [facility] [address] [place] [address], 98795, 11/17/2024 13:22:47 11/16/19 25 11/17/2024 CMP, serum or plasm a total bilirubin 0.5 mg/dL 0.2-1. 2 Not Available [facility] [address] [place] [address], 50947, 11/17/2024 13:22:47 11/16/19 25 11/17/2024 CMP, serum or plasm a ALT (SGPT) 12 U/L 8-35 Not Available [facility] [address] [place] [address], 99847, 11/17/2024 13:22:47 11/16/19 25 11/17/2024 CMP, serum or plasm a BUN 11 mg/dL 7-21 Not Available [facility] [address] [place] [address], 56341, 11/17/2024 13:22:47 11/16/19 25 11/17/2024 CMP, serum or plasm a creatinine 0.6 mg/dL 0.7-1. 3 low Not Available [facility] [address] [place] [address], 47092, 11/17/2024 13:22:47 11/16/19 25 11/17/2024 CMP, serum or plasm a CKD-epi GFR 118 eGFR was calcu lated using the 2020 CKD-E PI equat ion. (Dry Placer Machine Operator ori Kidne y Disea se has an eGFR less than 60 mL/mi n/1.7 3mm for a perio d of three month s or more. ) This calcu latio n has not been valid ated for patie nt ages <18 or >90 years old. Not Available [facility] [address] [place] [address], 73177, 11/17/2024 13:22:47 11/16/19 25 11/17/2024 CBC w/ auto diff CBC with differential Not Available [facility] [address] [place] [address], 72144, 11/17/2024 14:00:10 11/16/19 25 11/17/2024 CBC w/ auto diff WBC 8.8 K/uL 3.8-11 .2 Not Available [facility] [address] [place] [address], 27932, 11/17/2024 14:00:10 11/16/1911/17/2024 CBC w/ auto diff RBC 4.15 M/uL 3.92-5 .10 Not Available [facility] [address] [place] [address], 34149, 11/17/2024 14:00:10 11/16/1911/17/2024 CBC w/ auto diff HGB 12.4 g/dL 11.8-1 5.3 Not Available [facility] [address] [place] [address], 86360, 11/17/2024 14:00:10 11/16/1911/17/2024 CBC w/ auto diff HCT 36.9 % 36.5-4 4.8 Not Available [facility] [address] [place] [address], 03576, 11/17/2024 14:00:10 11/16/19 25 11/17/2024 CBC w/ auto diff MCV 88.9 fL 80.0-9 9.0 Not Available [facility] [address] [place] [address], 20999, 11/17/2024 14:00:10 11/16/1911/17/2024 CBC w/ auto diff MCH 29.9 pg 25.5-3 3.6 Not Available [facility] [address] [place] [address], 36119, 11/17/2024 14:00:10 11/16/1911/17/2024 CBC w/ auto diff MCHC 33.6 g/dL 32.0-3 6.0 Not Available [facility] [address] [place] [address], 00394, 11/17/2024 14:00:10 11/16/1911/17/2024 CBC w/ auto diff RDW-SD 40.5 fL 35.1 - 46.3 Not Available [facility] [address] [place] [address], 93244, 11/17/2024 14:00:10 11/16/1911/17/2024 CBC w/ auto diff plt 171 K/uL 130-40 0 Not Available [facility] [address] [place] [address], 82245, 11/17/2024 14:00:10 11/16/1911/17/2024 CBC w/ auto diff MPV 10.7 fL 9.3-12 .8 Not Available [facility] [address] [place] [address], 01880, 11/17/2024 14:00:10 11/16/1911/17/2024 CBC w/ auto diff antonieta% 70.5 % not estab Not Available [facility] [address] [place] [address], 18355, 11/17/2024 14:00:10 11/16/1911/17/2024 CBC w/ auto diff lym% 19.6 % not estab Not Available [facility] [address] [place] [address], 54771, 11/17/2024 14:00:10 11/16/1911/17/2024 CBC w/ auto diff mono% 8.2 % not estab Not Available [facility] [address] [place] [address], 47765, 11/17/2024 14:00:10 11/16/1911/17/2024 CBC w/ auto diff eos% 1.0 % not estab Not Available [facility] [address] [place] [address], 04557, 11/17/2024 14:00:10 11/16/1911/17/2024 CBC w/ auto diff baso% 0.2 % not estab Not Available [facility] [address] [place] [address], 75792, 11/17/2024 14:00:10 11/16/1911/17/2024 CBC w/ auto diff abs antonieta 6.2 K/uL 1.8-7. 5 Not Available [facility] [address] [place] [address], 15551, 11/17/2024 14:00:10 11/16/1911/17/2024 CBC w/ auto diff abs lym 1.7 K/uL 1.1-3. 3 Not Available [facility] [address] [place] [address], 55655, 11/17/2024 14:00:10 11/16/1911/17/2024 CBC w/ auto diff abs mono 0.7 K/uL 0.1-1. 0 Not Available [facility] [address] [place] [address], 92749, 11/17/2024 14:00:10 11/16/1911/17/2024 CBC w/ auto diff abs eos 0.1 K/uL 0.0-0. 7 Not Available [facility] [address] [place] [address], 83967, 11/17/2024 14:00:10 11/16/1911/1711/17/2024 CBC w/ auto diff abs baso 0.0 K/uL 0.0-0. 2 Not Available [facility] [address] [place] [address], 92980, 11/17/2024 14:00:10 11/16/19 25 11/17/2024 CBC w/ auto diff imm. gran % 0.5 % 0-5 Bibiana l RBC morph ology Plate lets appea r adequ ate Few plate let clump s prese nt Not Available [facility] [address] [place] [address], 63018, 11/17/2024 14:00:10 11/16/19 25 11/17/2024 CBC w/ auto diff NRBC % 0.0 % 0.0-0. 2 Not Available [facility] [address] [place] [address], 79678, 11/17/2024 14:00:10 11/16/1911/18/2024 thyro id perox idase (tpo) Ab, serum thyroid microsomal Ab 257 IU/mL 0-34 high Not Available [facility] [address] [place] [address], 08323, 11/18/2024 07:40:15 11/16/19 25 11/19/2024 thyro tropi n office receptionist tor Ab, serum thyrotropin- binding inhib 1.73 IU/L 0.00-1 .75 Not Available [facility] [address] [place] [address], 32351, 11/19/2024 08:10:21 11/16/19 25 11/20/2024 tsi (thyr oid-s timul ating immun oglob ulin) , serum thyroid stim. immunog. 3.41 IU/L 0.00-0 .55 high Not Available [facility] [address] [place] [address], 70840, 11/20/2024 16:37:27 11/18/19 25 11/18/2024 urina lysis , dipst ick Protein Trace Not Available [address] [facility] oral health therapist ([facility]) [address] 2nd [facility], [place], [address], 11/18/2024 16:39:50 11/18/19 25 11/18/2024 urina lysis , dipst ick Glucose Negati ve Not Available 900 [facility] Obg yn (Sc) [address], [place], [address], 11/18/2024 16:39:50 10/01/20 24 09/20/2024 US, obste tric, trans vagin [facility]st [address] [address] Teleph one Name: DARRYL WHITNEY [id number] Exam Date: 2023 Age: 39 Physic talisha: MD ASHLEY, LUPE : 1984 Examin ation: US OB TRANSV AGINAL INDICA TION: First trimes ter ultras ound for dating and viabil ity. A transv aginal ultras ound is perfor med demons tratin g a single intrau terine pregna ncy. A pole and yolk sac are identi fied. The locati on of the gestat ional sac is intrau terine . cardia c activi ty is confir med at 162 (bpm). Birney- rump length measur es 3.47 cm, consis tent with 10 weeks, 3 days ( 9w 5d by LMP). This gives an estima thony date of confin ement of 025. 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 IMPRES BRANDAN: Single ton, viable IUP 9.5 EDC 025. Two HOWARD. Larges t 1.99 cm. Electr onical ly signed in Vyas cribe by: Lupe Fuller MD on: 1:54 PM cc: Page PAGE 1 of [facility] ES 1 INTERFACE [facility] Only - [facility] [address] [place] [address], 05269, 10/01/2024 14:57:01 10/23/19 25 10/18/2024 US, obste tric, limit ed [address] [address] Teleph one [phone] Name: DARRYL WHITNEY [id number] Exam Date: 2024 Age: 39 Physic talisha: MD ASHLEY, LUPE : 1984 Examin ation: US OB LIMITE D Indica tion: Sonogr am done to check FHT. Antena boogie bleedi ng. Transa bdomin al ultras ound is perfor med. Previo usly dated 13.5 IUP is noted with FHR of 151 bpm in breech presen tation with an anteri or placen ta previa . Impres brandan: Single ton, viable IUP EDC with anteri or placen ta previa . Electr onical ly signed in Vyas cribe by: Lupe Fuller MD on:10/05 7:29 PM cc: Page PAGE 1 of [facility] ES 1 INTERFACE [facility] [address] [place] [address], [id number], 10/23/2024 20:32:10 Result Notes None recorded. Problems Name Problem SNOMED Code Status Onset Date Resolution Date Notes Provider Name and Address Organization Details Recorded Time Primary hypothyro idism 43426082 Active 2023 Gerri Cruz [facility], [facility] 4 14:54:24 Hypothyro idism in 054125309 Active 2023 Victorina Perrin [facility], [facility] 4 16:20:15 Genetic screening for disorder Active 2023 Victorina Perrin [facility] 4 17:48:59 89252779 Active 2023 Pina Miller null, [facility] 4 17:57:39 Genetic test Active 2023 Victorina Perrin null, [facility] 4 18:07:45 Recurrent herpes simplex labialis 019910352 Active 2023 [facility] 4 10:54:20 High risk 58790762 Active 2023 Victorina Perrin null, [facility] 5 10:50:23 Spotting per vagina in 341160795 Active 2024 Aydee Monkmaggie richter null, [facility] 5 15:54:33 First trimester bleeding 370450796010 0104 Active 2024 Salma Bowles, BLEMISH REMOVER, BLADE SHARPENER [address] [place] [address], 29196-876 3, [facility] 5 16:10:17 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 [address] [place] [address], 88171-438 3, [facility] 5 12:45:21 Antepartu m hemorrhag e 82886771 Active 2024 - Anterior Placenta Previa (Nothing per vagina. No cervical exams. Will need delivered at 36 wks.) - MFM appt w/ Dr. Arevalo 01/04/25 at 1:45pm. Victorina Marychuy null, [facility] 5 17:28:16 Antepartu m hemorrhag e 31917255 Active 2024 - Anterior Placenta Previa (Nothing per vagina. No cervical exams. Will need delivered at 36 wks.) - MFM appt w/ Dr. Arevalo 01/04/25 at 1:45pm. [facility] 5 17:28:16 Placenta previa 89126303 Active 2024 [facility] 5 10:50:55 Thyroidit is in 468132048693 29558 Active 2024 Anthony Fishman M.D. [address] [place] [address], 30160-516 3, [facility] 5 14:49:43 Thyroid hormone tests outside reference range 365325406 Active 2024 Anthony Fishman M.D. [address] [place] [address], 26326-166 3, [facility] 5 17:19:35 Autoimmun e thyroidit is 08439425 Active 2023 Gerri Cruz [facility] 4 16:45:29 Cassi thyroidit is 66993443 Active 2023 Lula Brennan [facility] 4 12:54:26 Problem Notes None recorded. Procedures Surgical History Date Name Laterality Status Provider Name and Address Organization Details Recorded Time 1 Date of Last Pap Smear completed Pina Miller [facility] 09/19/2024 15:57:37 delivery completed Not Available Health Note 04/20/2024 12:27:50 Imaging Results Imaging Date Name Status LastModified by Organization Details LastModified Time 09/20/2024 US, obstetric, transvaginal completed INTERFACE [facility] [address] [place] [address], 73080, 10/01/2024 14:57:01 10/18/2024 US, obstetric, limited completed INTERFACE [facility] [address] [place] [address], 48623, 10/23/2024 20:32:10 Procedure Notes None recorded. Medical Equipment None Reported. Allergies Allergen ID Allergen Name Allergen Category Reaction Reaction Severity Criticality Documentation Date Start Date Code Code System Note Provider Name and Address Organization Details Recorded Time 4091717 Toradol medicatio n Not available Not available Not available 11/04/20232014 54286 RxNorm Not Available Not Available Not Available 630713 tramadol hydrochlo ride medicatio n hives Not available Not available 11/02/20232015 68083 RxNorm React ion: Hives ; Not Available Not Available Not Available 466910 vancomyci n medicatio n hives Not available Not available 11/02/20232018 20043 RxNorm React ion: Hives ; Not Available Not Available Not Available 442449 ketorolac medicatio n hives Not available Not available 11/02/20232014 64858 RxNorm React ion: Hives ; Itchi ng; Not Available Not Available Not Available 154576 codeine medicatio n vomiting Not available Not available 11/02/20232007 2670 RxNorm React ion: Vomit ing; Not Available Not Available Not Available Medications Name Sig Start Date Stop Date Status Note LastModified by Organization Details LastModified Time valacyclovi r 1 gram tablet TAKE 2 TABLETS BY MOUTH TWICE DAILY FOR 1 DAY AT FIRST SIGN OF ONSET active Not Available Not Available No t Available dextroamphe tamine-amph etamine 10 mg tablet TAKE ONE TABLET BY MOUTH TWICE A DAY IN THE MORNING AND THE EARLY AFTERNOON 04/26 completed Not Available Not Available Not Available gabapentin 400 mg capsule TAKE 1 CAPSULE BY MOUTH 3 TIMES A DAY 04/26 completed Not Available Not Available Not Available triamcinolo ne acetonide 0.1 % topical cream apply to both nipples 2 to 3 times daily for 1 week, then use 1 to 2 times daily for 1 week, then every other day for 1 week 09/20 completed Not Available Not Available Not Available levothyroxi ne 25 mcg tablet take first thing in the morning on an empty stomach. wait 30 minutes before eating and drinking anything wait 2 hours before taking any othe active Not Available Not Available No t Available levothyroxi ne 50 mcg tablet TAKE 1 TABLET BY MOUTH EVERY DAY 09/20 completed Not Available Not Available Not Available hydrocodone 7.5 mg-acetamin ophen 325 mg tablet TAKE 1 TABLET BY MOUTH EVERY 6 HOURS NEEDED FOR MODERATE PAIN 04/26 completed Not Available Not Available Not Available acyclovir 5 % topical ointment APPLY TO THE AFFECTED AREA(S) BY TOPICAL ROUTE EVERY 3 HOURS 6 TIMES PER DAY 2023 active Not Available Not Available Not Avai lable dextroamphe tamine-amph etamine 20 mg tablet TAKE 1 TABLET BY MOUTH IN THE AM AND 1/2 TO 1 TAB AROUND LUNCH active Not Available Not Available No t Available metronidazo le 0.75 % topical cream APPLY AND GENTLY MASSAGE TOPICALLY INTO AFFECTED AREA(S) 1 TO 2 TIMES DAILY. 09/20 completed Not Available Not Available Not Available ibuprofen 600 mg tablet TAKE 1 TABLET BY MOUTH EVERY 6 HOURS NEEDED FOR MILD PAIN 04/26 completed Not Available Not Available Not Available albuterol sulfate HFA 90 mcg/actuati on aerosol inhaler INHALE 1 TO 2 PUFFS BY MOUTH EVERY 4 TO 6 HOURS NEEDED AND DIRECTED active Not Available Not Available No t Available metoclopram sachin 10 mg tablet TAKE 1 TABLET by mouth 3 times daily x 2 weeks active Not Available Not Available No t Available Plus DHA 27 mg iron-1 mg-312 mg-250 mg oral pack TAKE 1 TABLET & 1 CAPSULE BY MOUTH EVERY DAY 09/20 completed Not Available Not Available Not Available Vitals Date Recorded Body weight Systolic blood pressure Diastolic blood pressure Provider Name and Address Organization Details Last Updated DateTime 09/26/2024 303146.442 64 g 132 mm[Hg] 62 mm[Hg] Lupe Dan MD [address] [place] [address], [phone], [facility] 10/02/2024 11:03:27 Date Recorded Body height Body mass index (BMI) Body weight Heart rate Oxygen saturation Oxygen saturation in Arterial blood by Pulse oximetry Systolic blood pressure Diastolic blood pressure Provider Name and Address Organization Details Last Updated DateTime 166.37 cm 27.4 kg/m2 31768.6 4 g 86 /min 100 % 100 % 104 mm[Hg] 60 mm[Hg] Aydee richter [facility] 5 15:47:43 Date Recorded Body weight Systolic blood pressure Provider Name and Address Organization Details Last Updated DateTime 10/21/2024 46666.588127 g 04373 mm[Hg] Lupe Dan MD [address] [place] [address], [address], [facility] 10/31/2024 08:38:43 Date Recorded Body height Body mass index (BMI) Body weight Provider Name and Address Organization Details Last Updated DateTime 11/16/2024 166.37 cm 28.1 kg/m2 86707.01 g Verona Yeboah [facility] 11/16/2024 14:22:22 Date Recorded Body weight Systolic blood pressure Diastolic blood pressure Provider Name and Address Organization Details Last Updated DateTime 11/18/2024 72609.6251 89 g 100 mm[Hg] 52 mm[Hg] Pina Burkoxana [facility] 11/18/2024 16:38:53 Social History Question Answer Notes LastModified by Organizat ion Details LastModified Time Tobacco Smoking Status Never Smoker Aydee Reyes [facility] 10/18/2024 15:48:14 Do You Have An Advance Directive? No [email or web address] Information not available 04/20/2024 What Is Your Level Of Alcohol Consumption? None [email or web address] Information not available 04/20/2024 What Is Your Level Of Caffeine Consumption? Moderate [email or web address] Information not available 04/20/2024 Are You Currently Employed? 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 3-4 Times Per Week [email or web address] Information not available 04/20/2024 Do You Have A Medical Power Of Pneumatic Jacketer? No [email or web address] Information not available 04/20/2024 What Was The Date Of Your Most Recent Tobacco Screening? 04/26/2024 [email or web address] Information not available 04/20/2024 What Is Your Relationship Status? Other [email or web address] Information not available 04/20/2024 Do You Use Any Illicit Or Recreational Drugs? No [email or web address] Information not available 04/20/2024 Sex: Unknown Functional Status Question Answer Note LastModified by Organization D etails LastModified Time What is your exercise level? Moderate [email or web address] Information not available 04/20/2024 Mental Status None recorded. Family History Relationship Description Onset Age of this Age Resolved Age Notes LastModified by Organization Details LastModified Time Maternal Grandmother Alzheimer's disease [email or web address] Not available 2023 12:27:48 Maternal Grandmother Chronic obstructive pulmonary disease [email or web address] Not available 2023 12:27:48 Maternal Grandmother Diabetes mellitus [email or web address] Not available 2023 12:27:48 Maternal Grandmother Heart disease [email or web address] Not available 2023 12:27:48 Maternal Grandmother Cerebrovascu lar accident [email or web address] Not available 12:27:48 Maternal Grandmother Disorder of thyroid gland [email or web address] Not available 2023 12:27:48 Father Arthritis [email or web address] Not available 04/20/2024 12:27:48 Father Asthma [email or web address] Not available 12:27:48 Father Disorder of thyroid gland [email or web address] Not available 2023 12:27:48 Maternal Grandfather Arthritis [email or web address] Not available 04/04 12:27:48 Maternal Grandfather Chronic obstructive pulmonary disease [email or web address] Not available 2023 12:27:48 Maternal Grandfather Heart disease [email or web address] Not available 2023 12:27:48 Paternal Grandfather Arthritis [email or web address] Not available 04/04 12:27:48 Paternal Grandfather Family history of malignant neoplasm [email or web address] Not available 2023 12:27:48 Paternal Grandfather Chronic obstructive pulmonary disease [email or web address] Not available 2023 12:27:48 Paternal Grandfather Heart disease [email or web address] Not available 2023 12:27:48 Paternal Grandfather Cerebrovascu lar accident [email or web address] Not available 12:27:49 Paternal Grandfather Disorder of thyroid gland [email or web address] Not available 2023 12:27:49 Paternal Grandmother Arthritis [email or web address] Not available 04/04 12:27:49 Paternal Grandmother Family history of malignant neoplasm [email or web address] Not available 2023 12:27:49 Paternal Grandmother Heart disease [email or web address] Not available 2023 12:27:49 Paternal Grandmother Cerebrovascu lar accident [email or web address] Not available 12:27:49 Paternal Grandmother Disorder of thyroid gland [email or web address] Not available 2023 12:27:49 Mother Disorder of thyroid gland [email or web address] Not available 2023 12:27:49 Medical History Condition Response Attention-deficit Hyperactivity Disorder Y High Blood Pressure N Thyroid Problems Y COPD N Depression N Anemia N Diabetes N Anxiety Disorder N Bleeding Disorder N Arthritis N Hyperlipidemia N Cancer N Stroke N Asthma N Seizures N Heart Disease N Fibromyalgia N Osteoporosis N Kidney Disease N Gynecological History Statement/Question Response Abnormal Pap Y HPV Vaccine Y Date of Last Pap Smear 11/28/2020 Current Control Method Obstetrics History GPAL:G 4 P 3 0 0 3 Type Value Full Term 3 Living 3 Total 4 Past Encounters Encounter ID Performer Location Encounter Start Date Encounter Closed Date Diagnosis/Indication Diagnosis SNOMED-CT Code Diagnosis ICD10 Code Diagnosis Note [id number] Anthony Fishman M.D. [facility] [place] [address] [place] [address] 04/26/2024 14:32:17 04/26/2024 15:17:14 Autoimmune thyroiditis 83758053 E06.3 Cassi thyroiditis 21 129971 E06.3 Body mass index 25-29 - overweight 562788906 Z68.28 [id number] Pina Miller [facility] [place]) [address] [place] [address] 09/20/2024 14:29:06 09/20/2024 16:41:01 screening 209235425 Z36.89 Genetic wy reening for disorder 332782594 Z13.79 O09.521 Hypothyroi dism in 977567593 O99.281 E03.9 [id number] Lupe Dan MD [address] [facility] [place] [address] [address] 09/26/2024 16:06:10 09/26/2024 17:09:15 Genetic test 102792888 Z13.79 O09.521 [id number] Lupe Dan MD [facility] [place] [address] [place] [address],[address] [place] [address] 10/18/2024 15:06:54 10/18/2024 15:57:56 First trimester bleeding [id number] 847749 O20.9 13.5 wks gest. [id number] Lupe Dan MD [facility] [place] [address] [place] [address],[address] [place] [address] 10/21/2024 14:01:59 10/21/2024 15:18:16 Multigravida 527387107 Z34.82 Placenta previa 33182812 O44.02 [id number] Anthony Fishman M.D. [facility] [place] [address] [place] [address] 11/16/2024 14:18:27 11/16/2024 14:53:05 Autoimmune thyroiditis 56551125 E06.3 Thyroiditi s in 2009790312 7298938 O99.280 E06.9 Thyroid ho rmone tests outside reference range 825059516 R79.89 46320735 Z34.9 0 [id number] Lupe Dan MD [facility] [place] [address] [place] [address],[address] [address] 11/18/2024 14:21:17 11/18/2024 15:45:28 Second trimester 05982614 Z34.92 Health Concerns Section Related Observation LastModified by Organization Detai ls LastModified Time None Recorded Concern Status LastModified by Organization Details LastModified Time None Recorded Advance Directives Directive N: Payers Encounter Date Sequence Insurance Name Policy Number Policy Santana Covered Member ID Santana Member ID Guarantor Name 09/26/2024 1 [facility] (MEDICAID REPLACEMENT - HMO) [id number] Darryl Whitney [id number] Darryl Whitney 10/18/2024 1 [facility] (MEDICAID REPLACEMENT - O) [id number] Darryl Salinas [place] [id number] Darryl Salinas [place] 10/21/2024 1 [facility] (MEDICAID REPLACEMENT - O) [id number] Darryl Salinas [place] [id number] Darryl Salinas [place] 11/16/2024 1 [facility] (MEDICAID REPLACEMENT - O) [id number] Darryl Salinas [place] [id number] 87 Darryl Salinas [place] 11/18/2024 1 [facility] (MEDICAID REPLACEMENT - O) [id number] Darryl Salinas [place] [id number] Darryl [facility] Episode Ob Episode Information Episode Created Date Number of Fetuses Patient Bloodtype Patient rh Status Prepregnancy Weight lbs Domestic Partner Domestic Partner Phone Father Name Sample Maker Original Status 09/19/20 24 1 CLOSED Fetus Data First Name Last Name Admitted to NICU Weight (g) Sex Living Outcome Pediatric Complications Fetus ID Race Codes Race Delivery Type 3486.76 1704 F Full Term [address]341 C/S ( Section) Gary Calculation Initial Gary Date Initial Exam Date Initial Exam Provider Initial Ultrasound Date Last Menstrual Period Date Ultra Sound Weeks Gestation 0 Eighteen To Twenty Week Gary Update Ultra Sound Date Fundal Height At Umbil Quickening Date Ultra Sound Latest Weeks Gestation Final Gary Confirmed By Final Gary Confirmed Date Final Gary Date Ultra Sound Latest Days Gestation 0 0 Menstrual History Last Menstrual Date Menses Monthly On Bcp Conception Prior Menses Frequency Hcg Plus Date Menarche Onset Age Delivery Information Delivery Date Delivery Type Labor Anesthesia Weeks Gestation Incision Type Labor Labor Length Hrs Delivered By Post Complications Tubal Sterilization Discharge Date Comments 4 Regional-Sp inal 39 Saranya Discharge Information Feeding Method Contraceptive Method Maternal HG B and HCT Levels Ob Episode Information Episode Created Date Number of Fetuses Patient Bloodtype Patient rh Status Prepregnancy Weight lbs Domestic Partner Domestic Partner Phone Father Name Sample Maker Original Status 09/19/20 24 1 CLOSED Fetus Data First Name Last Name Admitted to NICU Weight (g) Sex Living Outcome Pediatric Complications Fetus ID Race Codes Race Delivery Type 3231.84 3 F Full Term [address]281 C/S ( Section) Gary Calculation Initial Gary Date Initial Exam Date Initial Exam Provider Initial Ultrasound Date Last Menstrual Period Date Ultra Sound Weeks Gestation 0 Eighteen To Twenty Week Gary Update Ultra Sound Date Fundal Height At Umbil Quickening Date Ultra Sound Latest Weeks Gestation Final Gary Confirmed By Final Gary Confirmed Date Final Gray Date Ultra Sound Latest Days Gestation 0 0 Menstrual History Last Menstrual Date Menses Monthly On Bcp Conception Prior Menses Frequency Hcg Plus Date Menarche Onset Age Delivery Information Delivery Date Delivery Type Labor Anesthesia Weeks Gestation Incision Type Labor Labor Length Hrs Delivered By Post Complications Tubal Sterilization Discharge Date Comments 3 Regional-Sp inal 39 Gwynne[place] r e Discharge Information Feeding Method Contraceptive Method Maternal HG B and HCT Levels Ob Episode Information Episode Created Date Number of Fetuses Patient Bloodtype Patient rh Status Prepregnancy Weight lbs Domestic Partner Domestic Partner Phone Father Name Sample Maker Original Status 09/19/20 24 1 CLOSED Fetus Data First Name Last Name Admitted to NICU Weight (g) Sex Living Outcome Pediatric Complications Fetus ID Race Codes Race Delivery Type 3798.83 3 M Full Term [id number] (Normal Spontaneo us Vaginal Delivery) Gary Calculation Initial Gary Date Initial Exam Date Initial Exam Provider Initial Ultrasound Date Last Menstrual Period Date Ultra Sound Weeks Gestation 0 Eighteen To Twenty Week Gary Update Ultra Sound Date Fundal Height At Umbil Quickening Date Ultra Sound Latest Weeks Gestation Final Gary Confirmed By Final Gary Confirmed Date Final Gary Date Ultra Sound Latest Days Gestation 0 0 Menstrual History Last Menstrual Date Menses Monthly On Bcp Conception Prior Menses Frequency Hcg Plus Date Menarche Onset Age Delivery Information Delivery Date Delivery Type Labor Anesthesia Weeks Gestation Incision Type Labor Labor Length Hrs Delivered By Post Complications Tubal Sterilization Discharge Date Comments 7 Regional-Ep idural 40.4 Michael3 r d degree [place] P[place] del Discharge Information Feeding Method Contraceptive Method Maternal HG B and HCT Levels Ob Episode Information Episode Created Date Number of Fetuses Patient Bloodtype Patient rh Status Prepregnancy Weight lbs Domestic Partner Domestic Partner Phone Father Name Sample Maker Original Status 09/20/20 24 1 B Positive mingo Corbinnzel OPEN Fetus Data First Name Last Name Admitted to NICU Weight (g) Sex Living Outcome Pediatric Complications Fetus ID Race Codes Race Delivery Type [id number] Problems Problem Notes EPDS:2HEP B: NegativePre-Pre BMI: 27CF/SMA: neg/negNIPT: NegativeFLU: Plans to get at work TDAP:RSV:AMAAbnormal ThryoidHSV-oral onlyHx 2 previous CD Problem Name Start Date End Date Resolution Snomed Code Not e Antepartum hemorrhage 10/24/2024 1890851 7 - Anterior Placenta Previa (Nothing per vagina. No cervical exams. Will need delivered at 36 wks.)- MFM appt w/ Dr. Arevalo 01/04/25 at 1:45pm. Gary Calculation Initial Gary Date Initial Exam Date Initial Exam Provider Initial Ultrasound Date Last Menstrual Period Date Ultra Sound Weeks Gestation 04/20/2025 09/20/2024 [email or web address] 09/20/2024 07/14/2024 9 Eighteen To Twenty Week Gary Update Ultra Sound Date Fundal Height At Umbil Quickening Date Ultra Sound Latest Weeks Gestation Final Gary Confirmed By Final Gary Confirmed Date Final Gary Date Ultra Sound Latest Days Gestation 0 0 Pre-edwin Flowsheet Flowsheet Date 09/20/2024 Redmond Score Blood Edema Fundus Height Fundus Units Glucose Ketones Leukocytes Nitrite Labor Signs Protein Cervic Dilation Cervic Effacement Cervic Station Type Weight in lbs Pre/Post Dialysis Refused Weight 167.842798474870 BP Diastolic BP Location Tested BP Systolic BP Type 62 132 Fetus Heart Rate Present A sono Fetus Movement Comments 39-year-old G4, P3 who prese nts for new OB visit she is 9 weeks 5 days. She is having some nausea. She is taking a vitamin. She is limiting her caffeine to 160 mg daily. Endocrinology is following her thyroid. She has a history of HSV oral lesions only. She has had 2 previous cesareans the most recent in 2022. She is advanced maternal age and testing will need to be completed. She stopped 2 and half weeks ago. She is going to be moving to [place] but is uncertain as to when during the . She has a history of LEEP procedure. She plans to get a flu vaccine at work. 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 She would like NIPT with gender. She is agreeable to blood transfusion of 1 were deemed medically necessary. She plans to circumcise if male. She plans to breast-feed. 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 GC/chlamydia were obtained. New OB lab orders were given. New OB teaching was reviewed. Flowsheet Date 09/26/2024 Redmond Score Blood Edema Fundus Height Fundus Units Glucose Ketones Leukocytes Nitrite Labor Signs Protein Cervic Dilation Cervic Effacement Cervic Station Type Weight in lbs Pre/Post Dialysis Refused 1672.37729349852 BP Diastolic BP Location Tested BP Systolic BP Type 62 132 Fetus Heart Rate Present A sn Fetus Movement Comments Flowsheet Date 10/18/2024 Redmond Score Blood Edema Fundus Height Fundus Units Glucose Ketones Leukocytes Nitrite Labor Signs Protein Cervic Dilation Cervic Effacement Cervic Station none Type Weight in lbs Pre/Post Dialysis Refused Weight 167.186688201359 BP Diastolic BP Location Tested BP Systolic BP Type 60 104 Fetus Heart Rate Present A Sono Present Fetus Movement Comments Patient called our office th is morning stating that while urinating she passed 2 very small clots. She has not noticed any vaginal bleeding since then but thought she should call. Denies any urinary urgency or dysuria. She states she voided prior to her pelvic sonogram therefore, she reports she cannot provide a urine sample to testing. Of note, pt. denies any current lower abdominal or pelvic pain but she does note that she experienced some dull discomfort on her Left side earlier. Pelvic sonogram showed good FHTs and was reassuring. She is advised to call our office is she has any further vaginal bleeding, urinary complaints or abdominal/pelvic discomfort. F/U appt. this Thursday, 10/[address] Dan as scheduled for PN visit. Flowsheet Date 10/21/2024 Redmond Score Blood Edema Fundus Height Fundus Units Glucose Ketones Leukocytes Nitrite Labor Signs Protein Cervic Dilation Cervic Effacement Cervic Station none trace Type Weight in lbs Pre/Post Dialysis Refused 168.430603717145 BP Diastolic BP Location Tested BP Systolic BP Type 38967 Fetus Heart Rate Present A 150 Fetus Movement A No Comments Still noting Tremors with he miguel Abraham. Has contacted her log marker. Has a glucose meter at home. Glucose normal. Has had difficulty getting established with an OB. Moving 12/03. Has MFM appt at [facility]. Was recently seen for bleeding. Notes dark jelly clots. Sono was reviewed and anterior previa noted. Discussed by phone restritions and precautions. Flowsheet Date 11/16/2024 Redmond Score Blood Edema Fundus Height Fundus Units Glucose Ketones Leukocytes Nitrite Labor Signs Protein Cervic Dilation Cervic Effacement Cervic Station Type Weight in lbs Pre/Post Dialysis Refused Weight 171.624530064496 BP Diastolic BP Location Tested BP Systolic BP Type Fetus Heart Rate Present Fetus Movement Comments Flowsheet Date 11/18/2024 Redmond Score Blood Edema Fundus Height Fundus Units Glucose Ketones Leukocytes Nitrite Labor Signs Protein Cervic Dilation Cervic Effacement Cervic Station 18 cm none trace Type Weight in lbs Pre/Post Dialysis Refused 169.640457672095 BP Diastolic BP Location Tested BP Systolic BP Type 52 100 Fetus Heart Rate Present A doppler Fetus Movement A Yes Comments Menstrual History Last Menstrual Date Menses Monthly On Bcp Conception Prior Menses Frequency Hcg Plus Date Menarche Onset Age 1007/14/2024 true false 27 4 12 Genetic Screening And Infection History Question Response Note Patient's Age Will Be 35 Years Or Older At Estim ated Date of Delivery true Patient's Age Will Be 35 Years Or Older At Estim ated Date of Delivery true Thalassemia (Kiswahili, Turkish, Mediterranean, Or Background): MCV < 80 false Neural Tube Defect (Meningomyelocele, Spina Bifi da, Or Anencephaly) false Congenital Heart Defect false Down Syndrome false Bunny-Sachs (eg, Druze, Cajun, Vietnamese-Traverse) f alse Kelle Disease false Sickle Cell Disease Or Trait () false Hemophilia Or Other Blood Disorders false Muscular Dystrophy false Cystic Fibrosis false Stafford's Chorea false Intellectual Disability/Autism false If Yes, Was Person Tested For Fragile X? false Other Inherited Genetic Or Chromosomal Disorder false Maternal Metabolic Disorder (eg, Type 1 Diabetes , PKU) false Patient Or Baby's Father Had A Child With Defects Not Listed Above false Recurrent Loss, Or A Stillbirth false Medications (including Suppl ements, Vitamins, Herbs, OTC Drugs), Illicit/Recreational Drugs, Alcohol false If Yes, Agent(s) And Strength/Dosage false Any Other Genetic History false Live With Someone With TB Or Exposed To TB false Patient Or Partner Has History Of Genital Herpes false Rash Or Viral Illness Since Last Menstrual Perio d false History Of STD, Gonorrhea, Chlamydia, HPV, Syphi lis false Other Infection History false Prior GBS-infected child false History of HIV false History of Hepatitis false Hemoglobinopathy Or Carrier false Other Structural Defect false Recent Travel History Outside of Country false Developmental Delay false Autism false Delivery Information Delivery Date Delivery Type Labor Anesthesia Weeks Gestation Incision Type Labor Labor Length Hrs Delivered By Post Complications Tubal Sterilization Discharge Date Comments Discharge Information Feeding Method Contraceptive Method Maternal HG B and HCT Levels
--- NOTE | 2024-12-31 11:27 | ED_ITS ---
HPI - Extremity Problem General Chief complaint: Extremity Problem,Nontraumatic Stated complaint: r/o dvt to left thigh Time Seen by Provider: 12/31/24 11:09 History of Present Illness HPI Narrative: 39-year-old female that is approximately 25 weeks , follows up with outpatient OBGYN regularly. No complications during this aside from placenta accreta and subchorionic hemorrhages which resolved. She denies any abdominal pain, pelvic pain, vaginal bleeding or contractions. No leakage of fluids. She states that she is concerned about blood clot in her left leg. She has having thigh pain and swelling. Denies any distal calf pain or ankle swelling. Family history of DVTs but no personal history of thromboembolic disease. She states she has bad varicose veins which have not been worsening over the . Denies any other symptoms. Has not taken anything for symptom control at home. No history of trauma or injury. Related Data Allergies Allergy/AdvReac Type Severity Reaction Status Date / Time ketorolac Allergy Hives Verified 12/31/24 11:04 vancomycin Allergy Hives Verified 12/31/24 11:04 Review of Systems Review of Systems: As reviewed above in HPI Exam Narrative: GENERAL: [Well-appearing, well-nourished, and in no acute distress.] HEAD: [Normocephalic, atraumatic.] EYES: [PERRLA and EOMI.] ENT: Nares clear, no rhinorrhea or epistaxis. Mucous membranes moist. NECK: Supple. CHEST: [Clear to auscultation. No respiratory distress.] HEART: [Regular rate and rhythm]. No murmur heard. [Normal peripheral pulses.] ABDOMEN: Gravid, [nontender], [No rigidity or guarding] EXTREMITIES: Normal range of motion. Some minimal swelling in the proximal left thigh, no overlying skin changes such as cellulitis, rash, blistering. Mild tenderness to palpation. No distal pain or swelling. SKIN: Varicose veins throughout both lower extremities left worse than right, otherwise warm and dry extremities. NEURO: [No focal deficits]. Alert and oriented [x3.] PSYCH: [Normal mood and affect.] Course Vital Signs Vital signs: Vital Signs Temperature 36.9 C 12/31/24 11:05 Pulse Rate 91 12/31/24 11:05 Respiratory Rate 16 12/31/24 11:05 Blood Pressure 130/67 12/31/24 11:05 Pulse Oximetry 100 12/31/24 11:05 Temperature 36.9 C 12/31/24 11:05 Pulse Rate 91 12/31/24 11:05 Respiratory Rate 16 12/31/24 11:05 Blood Pressure 130/67 12/31/24 11:05 Pulse Oximetry 100 12/31/24 11:05 MDM - Extremity (Nontraumatic) MDM Narrative Medical decision making narrative: 39-year-old female who is approximately 25 weeks presenting to the emergency department with left thigh pain and swelling for approximately 24 hours. Has not tried any symptom control medications at home. No history of personal DVT but she has a strong family history of DVT and thromboembolic events. No known genetic disorder such as Factor 5 Leiden. No calf pain or swelling. 2+ dorsalis pedis pulses. She does have varicose veins bilaterally left worse than right. No complications of her at this time, no vaginal bleeding, leakage of fluids, abdominal pain or pelvic pain. Vital signs are reassuring, no tachycardia, fever, hypoxia or blood pressure elevations. She follows up regular with OBGYN I did not believe her is related to her visit today. Left lower extremity DVT ultrasound was obtained and she was provide Tylenol for analgesia and re-evaluated. Ultrasound shows superficial thrombophlebitis but no DVT. She was told with the diagnosis and plan for anti-inflammatory management with Tylenol. She will follow-up with regular doctor outpatient and OBGYN. She was safe for discharge. Discharge Plan Discharge Clinical Impression: Superficial thrombophlebitis during in second trimester Patient Disposition: Home, Self-Care Condition: Stable Instructions: Antibiotic Form, Superficial Thrombophlebitis (ED) Additional Instructions: Do not have a deep venous thrombosis, the superficial veins do have some irritation and inflammation and is called superficial thrombophlebitis which is common in and not dangerous. Treatments are warm compresses and anti- inflammatory medications. Given that you are you can take Tylenol 1000 mg every 8 hours and applying warm compresses to the area as needed. Follow-up with your regular doctor and OBGYN. Return with any new or worsening concerns. Patient Language: Vietnamese Prescriptions: New acetaminophen [Tylenol Extra Strength] 500 mg tablet 1,000 mg PO TID PRN (Reason: pain) Qty: 30 0RF Follow-up/Referrals: PHYSICIAN NOT ON STAFF,NONSTAFF [Primary Care Provider] - Time of Disposition: 13:54
[2024-12-31] MEDS: ACETAMINOPHEN 500 MG TABLET 1000 MG PO (11:42)
[2024-12-31 13:56] VITALS: BP 108/69; PULSE 75; RESP 20; O2SAT 100
== END 2024-12-31 14:06 | disposition home or self-care (01) ==
PROVIDERS: Emergency Provider Student in an Organized Health Care Education/Training Program
DX: O99.412 Diseases of the circulatory system complicating pregnancy, second trimester (principal); I80.02 Phlebitis and thrombophlebitis of superficial vessels of left lower extremity
CPT/HCPCS: 93971; 99284; A9270